=== PATIENT | male | born 1955 | race Hispanic/Latino ===

== ENCOUNTER → 2018-05-24 | Outpatient (CLI) | payer MEDICARE ==
[~2018-05-24] MED LIST: REGADENOSON 0.4 MG/5 ML PF SYG IVP SCH
== END | disposition home or self-care (01) ==
LOC: SHCH 07:55
PROVIDERS: ATTEND Internal Medicine Cardiovascular Disease
DX: I25.810 Atherosclerosis of coronary artery bypass graft(s) without angina pectoris (principal)
CPT/HCPCS: 78452; 93017; 96374; A9500 ×2; J2785

== ENCOUNTER → 2020-06-19 | Outpatient (CLI) | payer OTHER, MEDICARE | END | disposition home or self-care (01) | LOC: SHCH 08:40 | PROVIDERS: ATTEND Internal Medicine Cardiovascular Disease | DX: R01.1 Cardiac murmur, unspecified (principal) | CPT/HCPCS: 93306; 93356 ==

== ENCOUNTER → 2020-07-01 | Outpatient (CLI) | payer OTHER, MEDICARE | END | disposition home or self-care (01) | LOC: SHCH 07:46 | PROVIDERS: ATTEND Internal Medicine Cardiovascular Disease | DX: I65.23 Occlusion and stenosis of bilateral carotid arteries (principal) | CPT/HCPCS: 93880 ==

== ENCOUNTER 2020-09-16 10:02 | Observation (INO) | payer OTHER, MEDICARE ==
[~2020-09-16] VITALS: Ht 172.7 cm; Wt 80.7 kg
[2020-09-16] VITALS (7 sets, daily range): BP systolic 111–158; BP diastolic 54–85
[2020-09-16 11:14] LABS: BASOPHILS % (AUTO) 0.3 % (0.0-5.0); EOSINOPHILS % (AUTO) 0.3 % (0.0-8.0); HEMATOCRIT 44.9 % (42-54); LYMPHOCYTES % (AUTO) 17.4 % (21.0-51.0); MEAN CORPUSCULAR HEMOGLOBIN 30.1 pg (27.0-33.0); MEAN CORPUSCULAR VOLUME 91.4 fL (79-99); MONOCYTES % (AUTO) 6.4 % (3.0-13.0); NEUTROPHILS % (AUTO) 75.2 % (40.0-77.0); PLATELET COUNT (AUTO) 240 K/uL (130-400); RED BLOOD CELL COUNT(AUTO) 4.91 MIL/uL (4.50-6.20); WHITE BLOOD COUNT (AUTO) 9.9 K/uL (4.8-10.8)
[2020-09-16 11:19] LABS: CREATININE 1.1 mg/dL (0.5-1.5); POTASSIUM 4.6 mmol/L (3.5-5.1)
[2020-09-16 11:24] LABS: ALBUMIN 3.5 g/dL (3.5-5.0); BILIRUBIN,TOTAL 0.4 mg/dL (0.2-1.0); TOTAL PROTEIN, SERUM 7.3 g/dL (6.0-8.3)
[2020-09-16 11:59] LABS: B-TYPE NATRIURETIC PEPTIDE 131 pg/mL (0-100)
[2020-09-16 12:10] LABS: INR 0.89 (0.85-1.15); PROTHROMBIN TIME 9.8 SEC (9.6-11.6)
[2020-09-16 12:11] LABS: PARTIAL THROMBOPLASTIN TIME 26.9 SEC (26.3-35.5)
[2020-09-16] MEDS ORDERED: NITROGLYCERIN 1GM OINT 1 INCH/1GM TD ONE (12:30)
[2020-09-16] MEDS ORDERED: MAGNESIUM 2GM PREMIX 50ML 50 ML IV PRN (14:00)
[2020-09-16] MEDS ORDERED: POTASSIUM CHLORIDE 10% ELIXIR 20 MEQ/15 ML UDCUP PO PRN (14:00)
[2020-09-16] MEDS ORDERED: POTASSIUM CHLORIDE 20MEQ/100ML 100 ML IV PRN ×2 (14:00)
[2020-09-16] MEDS: NITROGLYCERIN 1GM OINT 1 INCH/1GM TD SCH ×2 (14:00→22:00)
[2020-09-16] MEDS ORDERED: LIDOCAINE HCL-MPF 1% 2ML VIAL IV PRN ×2 (14:00)
[2020-09-16] MEDS ORDERED: KCL 20 MEQ ERTAB PO PRN (14:00)
[2020-09-16] MEDS ORDERED: ONDANSETRON 4MG INJ IVP PRN (14:00)
[2020-09-16 14:27] LABS: CHOLESTEROL 180 mg/dL (<200); CREATINE KINASE, TOTAL 178 U/L (21-232); HDL CHOLESTEROL 62 mg/dL (29-71); LDL DIRECT 97 mg/dL (0-99); MYOGLOBIN 69 ng/mL (10-92); THYROID STIMULATING HORMONE 0.27 uIU/mL (0.36-3.74); TRIGLYCERIDES 107 mg/dL (30-200); TROPONIN I < 0.04 ng/mL (0.00-0.06)
[2020-09-16] MEDS ORDERED: ATOR40TA69 PO (17:52)
[2020-09-16] MEDS ORDERED: ATEN25TA PO (17:52)
[2020-09-16] MEDS ORDERED: CLOP75TA32 PO (17:52)
[2020-09-16] MEDS ORDERED: TAMS-1 PO (17:52)
[2020-09-16] MEDS ORDERED: ZOLP10TA2 PO (17:52)
[2020-09-16] MEDS: ACETAMINOPHEN 325 MG TAB PO PRN (19:49)
[2020-09-16 21:52] LABS: APPEARANCE,URINE Clear (CLEAR); BILIRUBIN,URINE Negative (NEGATIVE); COLOR,URINE Yellow (YELLOW); GLUCOSE, URINE (UA) Negative (NEGATIVE); KETONES,URINE Trace mg/dL (NEGATIVE); LEUKOCYTE ESTERASE ,URINE Trace (NEGATIVE); NITRATE,URINE Negative (NEGATIVE); OCCULT BLOOD,URINE Negative (NEGATIVE); PROTEIN,URINE Negative (NEGATIVE)
[2020-09-16 21:59] LABS: BACTERIA,URINE Rare /HPF (None Seen); RBC,URINE 0-1 /HPF (0-1); SQUAMOUS EPITHELIAL CELL,UR Rare /HPF (0-2)
[2020-09-16 22:26] LABS: TROPONIN I 1.9 ng/mL (0.00-0.06)
[2020-09-16] MEDS: ZOLPIDEM TARTRATE 5 MG TAB PO SCH (22:27)
[2020-09-16] MEDS: METOPROLOL TARTRATE 25 MG TAB PO SCH (22:27)
[2020-09-16] MEDS: ATORVASTATIN 40 MG TABLET PO SCH (22:27)
[2020-09-16] MEDS: PANTOPRAZOLE 40 MG/VIAL IVP SCH (22:27)
[2020-09-17] VITALS (11 sets, daily range): BP systolic 119–135; BP diastolic 64–91
[2020-09-17] MEDS: NITROGLYCERIN 1GM OINT 1 INCH/1GM TD SCH ×2 (04:36→09:17)
[2020-09-17 05:35] LABS: BASOPHILS % (AUTO) 0.4 % (0.0-5.0); EOSINOPHILS % (AUTO) 1.6 % (0.0-8.0); HEMATOCRIT 42.6 % (42-54); LYMPHOCYTES % (AUTO) 30.7 % (21.0-51.0); MEAN CORPUSCULAR HEMOGLOBIN 30.1 pg (27.0-33.0); MEAN CORPUSCULAR HGB CONC 33.1 g/dL (32.0-36.0); MEAN CORPUSCULAR VOLUME 90.8 fL (79-99); MONOCYTES % (AUTO) 9.5 % (3.0-13.0); NEUTROPHILS % (AUTO) 57.5 % (40.0-77.0); PLATELET COUNT (AUTO) 278 K/uL (130-400); RED BLOOD CELL COUNT(AUTO) 4.69 MIL/uL (4.50-6.20); WHITE BLOOD COUNT (AUTO) 13.7 K/uL (4.8-10.8)
[2020-09-17 05:36] LABS: CREATININE 1.3 mg/dL (0.5-1.5); POTASSIUM 3.9 mmol/L (3.5-5.1)
[2020-09-17] MEDS: METOPROLOL TARTRATE 25 MG TAB PO SCH ×2 (09:00→20:16)
[2020-09-17] MEDS: TAMSULOSIN HCL 0.4 MG CAP.ER.24H PO SCH (09:00)
[2020-09-17] MEDS ORDERED: CLOPIDOGREL 75MG TAB PO SCH (09:00)
[2020-09-17] MEDS ORDERED: ENOXAPARIN SODIUM 40 MG/0.4 ML SYRINGE SQ SCH (09:00)
[2020-09-17] MEDS: ASPIRIN 81 MG EC TAB PO SCH (09:00)
[2020-09-17] MEDS: PANTOPRAZOLE 40 MG/VIAL IVP SCH (09:01)
[2020-09-17] MEDS ORDERED: BIVALIRUDIN 250 MG/VIAL IV ONE (10:07)
[2020-09-17] MEDS ORDERED: LIDOCAINE HCL 400MG/20ML VIAL ONE (10:08)
[2020-09-17] MEDS ORDERED: NITROGLYCERIN 2 MG VIAL IV ONE (10:08)
[2020-09-17] MEDS ORDERED: IOHEXOL-350 50ML VIAL IV ONE ×2 (10:08→12:53)
[2020-09-17] MEDS ORDERED: IOHEXOL 350 MG/ML 100ML INFUS..BTL IV ONE (10:08)
[2020-09-17] MEDS ORDERED: MIDAZOLAM HCL 1 MG/ML 2ML VIAL ONE (10:10)
[2020-09-17] MEDS ORDERED: FENTANYL CITRATE PF 50 MCG/1 ML 2ML VIAL ONE ×2 (11:37→12:31)
[2020-09-17] MEDS ORDERED: ASPIRIN 325MG EC TAB PO ONE (12:24)
[2020-09-17] MEDS ORDERED: PRASUGREL HCL 10 MG TABLET ONE (12:24)
[2020-09-17] MEDS ORDERED: 0.9%NACL 1000ML 1,000 ML IV SCH (13:30)
[2020-09-17] MEDS ORDERED: MORPHINE 10 MG SYG IVP PRN (19:00)
[2020-09-17] MEDS ORDERED: MORPHINE 2 MG SYG IVP PRN (19:00)
[2020-09-17] MEDS ORDERED: SIMETHICONE 80 MG TAB.CHEW PO PRN (19:00)
[2020-09-17] MEDS ORDERED: RANOLAZINE 500 MG TAB.SR.12H ONE (19:11)
[2020-09-17] MEDS: RANOLAZINE 500 MG TAB.SR.12H PO SCH (21:00)
[2020-09-17] MEDS: ATORVASTATIN 40 MG TABLET PO SCH (21:00)
[2020-09-17] MEDS: ZOLPIDEM TARTRATE 5 MG TAB PO SCH (23:25)
[2020-09-17] MEDS: ACETAMINOPHEN 325 MG TAB PO PRN (23:26)
[2020-09-18 03:42] LABS: HEMATOCRIT 46.3 % (42-54); MEAN CORPUSCULAR HEMOGLOBIN 30.4 pg (27.0-33.0); MEAN CORPUSCULAR HGB CONC 33.3 g/dL (32.0-36.0); MEAN CORPUSCULAR VOLUME 91.3 fL (79-99); RED BLOOD CELL COUNT(AUTO) 5.07 MIL/uL (4.50-6.20); RED CELL DISTRIBUTION WIDTH 15.7 % (11.0-15.5); WHITE BLOOD COUNT (AUTO) 11.4 K/uL (4.8-10.8)
[2020-09-18 03:49] LABS: CREATININE 1.1 mg/dL (0.5-1.5); POTASSIUM 4.6 mmol/L (3.5-5.1)
[2020-09-18 04:14] VITALS: BP 114/77
[2020-09-18 07:58] VITALS: BP 118/75
[2020-09-18] MEDS ORDERED: PRASUGREL HCL 10 MG TABLET PO SCH (09:00)
[2020-09-18] MEDS ORDERED: PANTOPRAZOLE 40 MG TAB DR PO SCH (09:00)
[2020-09-18] MEDS: RANOLAZINE 500 MG TAB.SR.12H PO SCH (09:00)
[2020-09-18] MEDS: ACETAMINOPHEN 325 MG TAB PO PRN (09:49)
[2020-09-18] MEDS: METOPROLOL TARTRATE 25 MG TAB PO SCH (09:50)
[2020-09-18] MEDS: TAMSULOSIN HCL 0.4 MG CAP.ER.24H PO SCH (09:50)
[2020-09-18] MEDS: ASPIRIN 81 MG EC TAB PO SCH (09:50)
[2020-09-18 11:26] VITALS: BP 115/74
== END 2020-09-18 14:35 | disposition home or self-care (01) ==
LOC: EDH 10:02 → EDHIP 13:34 → 4BH 21:45
PROVIDERS: ADMIT Internal Medicine Critical Care Medicine; ATTEND Internal Medicine Critical Care Medicine
DX: I25.10 Atherosclerotic heart disease of native coronary artery without angina pectoris (principal); I24.9 Acute ischemic heart disease, unspecified; I10 Essential (primary) hypertension; E11.9 Type 2 diabetes mellitus without complications; I44.7 Left bundle-branch block, unspecified; J61 Pneumoconiosis due to asbestos and other mineral fibers; E78.5 Hyperlipidemia, unspecified; E78.00 Pure hypercholesterolemia, unspecified; M54.17 Radiculopathy, lumbosacral region; E78.1 Pure hyperglyceridemia; I21.4 Non-ST elevation (NSTEMI) myocardial infarction; I25.110 Atherosclerotic heart disease of native coronary artery with unstable angina pectoris; E11.51 Type 2 diabetes mellitus with diabetic peripheral angiopathy without gangrene; C61 Malignant neoplasm of prostate; K21.9 Gastro-esophageal reflux disease without esophagitis; Z95.1 Presence of aortocoronary bypass graft; Z85.46 Personal history of malignant neoplasm of prostate; Z79.899 Other long term (current) drug therapy; Z68.27 Body mass index [BMI] 27.0-27.9, adult; Z79.02 Long term (current) use of antithrombotics/antiplatelets; Z92.3 Personal history of irradiation; Z95.5 Presence of coronary angioplasty implant and graft
CPT/HCPCS: 36415 ×3; 71045; 80048 ×2; 80053; 80061; 81001; 82550 ×2; 83735; 83874 ×2; 83880; 84443; 84484 ×4; 85025 ×2; 85027; 85378; 85610; 85730; 93005 ×2; 93459; 96374; 96375; 96376; 99285; C1725; C1760; C1769; C1874; C1887; C1894 ×2; C9113 ×2; C9604; G0378 ×49; J0583; J1644 ×2; J2250; J2405; J3010 ×2; J3490 ×2; Q9965 ×2; Q9967 ×2; 99156; 99157

== ENCOUNTER → 2022-04-08 | Outpatient (CLI) | payer OTHER, MEDICARE ==
[~2022-04-08] MED LIST changes: +ATEN25TA PO; +ATOR40TA69 PO; +CLOP75TA32 PO; -REGADENOSON 0.4 MG/5 ML PF SYG IVP SCH; +TAMS-1 PO; +ZOLP10TA2 PO
== END | disposition home or self-care (01) ==
LOC: SHCH 08:19
PROVIDERS: ATTEND Internal Medicine Cardiovascular Disease
DX: I73.9 Peripheral vascular disease, unspecified (principal)
CPT/HCPCS: 93925

== ENCOUNTER 2022-06-16 19:20 | Emergency (ER) | payer OTHER, MEDICARE ==
[~2022-06-16] VITALS: Ht 172.7 cm; Wt 82.6 kg
[2022-06-16 20:00] LABS: BASOPHILS % (AUTO) 0.4 % (0.0-5.0); LYMPHOCYTES % (AUTO) 9.3 % (21.0-51.0); MEAN CORPUSCULAR HEMOGLOBIN 30.5 pg (27.0-33.0); MEAN CORPUSCULAR HGB CONC 32.9 g/dL (32.0-36.0); MEAN CORPUSCULAR VOLUME 92.7 fL (79-99); MONOCYTES % (AUTO) 8.6 % (3.0-13.0); NEUTROPHILS % (AUTO) 80.2 % (40.0-77.0); PLATELET COUNT (AUTO) 312 K/uL (130-400); RED CELL DISTRIBUTION WIDTH 15.9 % (11.0-15.5); WHITE BLOOD COUNT (AUTO) 15.5 K/uL (4.8-10.8)
[2022-06-16] MEDS ORDERED: ACETAMINOPHEN 325 MG TAB PO ONE (20:00)
[2022-06-16 20:01] LABS: APPEARANCE,URINE CLEAR (CLEAR); BILIRUBIN,URINE NEGATIVE (NEGATIVE); COLOR,URINE LIGHT-YELLOW (YELLOW); GLUCOSE, URINE (UA) NEGATIVE (NEGATIVE); KETONES,URINE 5 mg/dL (NEGATIVE); LEUKOCYTE ESTERASE ,URINE NEGATIVE Leu/uL (NEGATIVE); NITRATE,URINE NEGATIVE (NEGATIVE); OCCULT BLOOD,URINE NEGATIVE (NEGATIVE); PROTEIN,URINE 30 mg/dL (NEGATIVE); UROBILINOGEN,URINE 0.2 mg/dL (0.2-1.0)
[2022-06-16 20:08] LABS: CARBON DIOXIDE 25 mmol/L (21-32); CHLORIDE 105 mmol/L (101-111); CREATININE 1.3 mg/dL (0.5-1.5); GLOMERULAR FILTR. RATE CALC 61 mL/min (>90); GLUCOSE,RANDOM 122 mg/dL (70-105); POTASSIUM 4.2 mmol/L (3.5-5.1); SODIUM SERUM 140 mmol/L (136-145); UREA NITROGEN, BLOOD 34 mg/dL (7-18)
[2022-06-16 20:17] LABS: ALANINE AMINOTRANSFERASE 48 U/L (12-78); ALBUMIN 4.1 g/dL (3.5-5.0); ASPARTATE AMINOTRANSFERASE 38 U/L (10-37); TOTAL PROTEIN, SERUM 8.5 g/dL (6.0-8.3)
[2022-06-16 20:19] LABS: LIPASE < 50 U/L (114-286)
[2022-06-16 20:25] LABS: MUCUS,URINE RARE LPF (None Seen); SQUAMOUS EPITHELIAL CELL,UR RARE /HPF (0-2); WBC,URINE 0-1 /HPF (0-1)
[2022-06-16] MEDS ORDERED: KETOROLAC 15MG/ML VIAL (15MG/ML) IV ONE (21:30)
[2022-06-16] MEDS ORDERED: 0.9%NACL 1000ML 1,000 ML IV ONE (21:30)
[2022-06-16] MEDS ORDERED: LEVOFLOXACIN 750 MG/D5W 150ML BAG IVPB ONE (21:30)
[2022-06-16] MEDS ORDERED: ONDANSETRON 4MG INJ IVP ONE (21:30)
[2022-06-16] MEDS ORDERED: ONDA4TAB10 PO (23:04)
[2022-06-16] MEDS ORDERED: LEVO750T68 PO (23:04)
[2022-06-16 23:40] VITALS: BP 111/60
== END 2022-06-17 00:29 | disposition home or self-care (01) ==
LOC: EDH 19:20
DX: A09 Infectious gastroenteritis and colitis, unspecified (principal); D72.829 Elevated white blood cell count, unspecified; I10 Essential (primary) hypertension; Z79.01 Long term (current) use of anticoagulants; Z79.899 Other long term (current) drug therapy; Z85.46 Personal history of malignant neoplasm of prostate; Z20.822 Contact with and (suspected) exposure to COVID-19
CPT/HCPCS: 99285; 96365; 71045; 96375; 87635; 96366; 84484; 80053; 83690; 85025; 87040 ×2; 87804 ×2; 81001; 36415; 93005; C9803; J1956; J7030; J2405; J1885

== ENCOUNTER → 2023-06-06 | Outpatient (CLI) | payer OTHER, MEDICARE ==
[~2023-06-06] MED LIST changes: +ALBU10PO MC; +DOXY100T2 PO; +FURO20TA4 PO; +FURO20TA6 PO; +LINA290C PO; +OMEP40CA21 PO
[2023-06-06] MEDS: REGADENOSON 0.4 MG/5 ML PF SYG IVP ONE (14:45)
== END | disposition home or self-care (01) ==
LOC: SHCH 08:37
PROVIDERS: ATTEND Internal Medicine Cardiovascular Disease
DX: I25.10 Atherosclerotic heart disease of native coronary artery without angina pectoris (principal); I51.7 Cardiomegaly
CPT/HCPCS: 78452; 96374; 93017; J2785; A9500 ×2

== ENCOUNTER → 2023-06-15 | Outpatient (CLI) | payer OTHER, MEDICARE ==
[2023-06-15 12:13] LABS: BASOPHILS # (AUTO) 0.05 K/uL (0.00-0.20); BASOPHILS % (AUTO) 0.6 % (0.0-5.0); EOSINOPHILS # (AUTO) 0.44 K/uL (0.00-0.70); EOSINOPHILS % (AUTO) 5.1 % (0.0-8.0); HEMATOCRIT 44.2 % (42-54); IMMATURE GRANULOCYTE ABSOLUTE 0.03 K/uL (0-1); LYMPHOCYTES # (AUTO) 3.4 K/uL (1.0-4.8); LYMPHOCYTES % (AUTO) 39.1 % (21.0-51.0); MEAN CORPUSCULAR HEMOGLOBIN 30.3 pg (27.0-33.0); MEAN CORPUSCULAR HGB CONC 33.3 g/dL (32.0-36.0); MEAN CORPUSCULAR VOLUME 91.1 fL (79-99); MONOCYTES # (AUTO) 0.9 K/uL (0.1-1.0); MONOCYTES % (AUTO) 10.4 % (3.0-13.0); NEUTROPHILS # (AUTO) 3.9 K/uL (1.8-7.7); NEUTROPHILS % (AUTO) 44.5 % (40.0-77.0); PLATELET COUNT (AUTO) 298 K/uL (130-400); RED BLOOD CELL COUNT(AUTO) 4.85 MIL/uL (4.50-6.20); RED CELL DISTRIBUTION WIDTH 14.8 % (11.0-15.5); WHITE BLOOD COUNT (AUTO) 8.7 K/uL (4.8-10.8)
[2023-06-15 12:42] LABS: ALBUMIN 3.3 g/dL (3.5-5.0); BILIRUBIN,TOTAL 0.5 mg/dL (0.2-1.0); CREATININE 1.1 mg/dL (0.5-1.3); MAGNESIUM 1.9 mg/dL (1.80-2.40); POTASSIUM 4.1 mmol/L (3.5-5.1); TOTAL PROTEIN, SERUM 7.2 g/dL (6.0-8.3)
[2023-06-15 13:03] LABS: ERYTHROCYTE SEDIMENTATION RATE 10 MM/HR (0-20)
== END | disposition home or self-care (01) ==
LOC: LAB 08:04
PROVIDERS: ATTEND Internal Medicine Cardiovascular Disease
DX: I10 Essential (primary) hypertension (principal); E78.5 Hyperlipidemia, unspecified
CPT/HCPCS: 36415; 80053; 80061; 83735; 83880; 85025; 85651

== ENCOUNTER → 2024-05-02 | Outpatient (CLI) | payer OTHER, MEDICARE ==
--- NOTE | 2024-05-06 15:15 | HMCSR ---
APPROVED REPORT EXAM: Two-dimensional and M-mode echocardiogram with Doppler and color Doppler. INDICATION ICD: I10.0 Essential (primary) Hypertension 2D Dimensions RVDd4.0 cmLVEF(%)43.2 (>50%)LVED Vol(simp.)103.0 mL IVSd1.2 (0.7-1.1cm)FS(%)21 %LVES Vol(simp.)55.0 mL LVDd5.1 (3.8-5.6cm)Ao Root(2D)3.2 (2.0-3.7cm)LVEF(%, simp.)47 % PWd1.3 (0.7-1.1cm)LVOT diam2.2 (1.8-2.4cm)LA ESV INDEX (BP)29.18 mL/m2 LVDs4.0 (2.5-4.0cm)IVC diam1.6 cm Aortic Valve AoV Vmax1.2 m/Carmen Peak GR5.7 mmHgLVOT Vmax1.0 m/s AoV VTI0.3 mAo Mean GR3.2 mmHgLVOT VTI0.22 m DARRIN (VMAX)3.0 cm2AVA (VTI) 3.0 cm2 Mitral Valve MV E Vmax78.8 cm/sDECEL Oung475 ms MV A Vmax62.4 cm/sP 1/2 T79 ms E/A ratio1.3MVA (PHT)2.8 cm2 TDI E/E' Bwvmoa61.9E/E' Lateral8.1 Pulmonary Valve PV Vmax1.4 m/sPV VTI0.25 mPV Mean GR3 mmHg PV Peak GR7.4 mmHg Tricuspid Valve TR Vmax2.3 m/sRAP (EST) 3 iwUhWFWI66.8 mmHg TR Peak GR20.8 mmHg Left Ventricle Left ventricular cavity size is normal. There is mild concentric left ventricular hypertrophy. LVEF i s 40-45%. No left ventricle thrombus noted on this study. Left ventricular filling pattern is normal for age. Right Ventricle The right ventricle is normal size. The right ventricular systolic function is normal. Atria The left atrium size is normal. The right atrium size is normal. Aortic Valve Aortic valve leaflets are sclerotic but open well. Trace aortic regurgitation. There is no aortic madeline vular stenosis. Mitral Valve Mitral valve leaflets are mildly sclerotic but open well. Mitral regurgitation is trace. There is no mitral valve stenosis. Tricuspid Valve The tricuspid valve leaflets appear normal. There is trace tricuspid regurgitation. Pulmonic Valve The pulmonic valve leaflets are thin and pliable; valve motion is normal. There is trace pulmonic madeline vular regurgitation. Great Vessels The aortic root is normal in size. The IVC is normal in size and collapses >50% with inspiration. Pericardium No pericardial effusion. Conclusion Left ventricular cavity size is normal. There is mild concentric left ventricular hypertrophy. LVEF is 40-45%. The right ventricle is normal size. The left atrium size is normal. Aortic valve leaflets are sclerotic but open well. Trace aortic regurgitation. Mitral valve leaflets are mildly sclerotic but open well. Mitral regurgitation is trace. There is trace tricuspid regurgitation. There is trace pulmonic valvular regurgitation. The aortic root is normal in size. The IVC is normal in size and collapses >50% with inspiration. No pericardial effusion.
== END | disposition home or self-care (01) ==
LOC: SHCH 10:44
PROVIDERS: ATTEND Internal Medicine Cardiovascular Disease
DX: I08.0 Rheumatic disorders of both mitral and aortic valves (principal); I11.9 Hypertensive heart disease without heart failure
CPT/HCPCS: 93306

== ENCOUNTER → 2024-10-10 | Outpatient (CLI) | payer OTHER, MEDICARE ==
[~2024-10-10] MED LIST changes: +IOHEXOL 350 MG/ML 100ML INFUS..BTL IV ONE; -TAMS-1 PO; +TAMS-55 PO; +ZOLP-685 PO; -ZOLP10TA2 PO
--- NOTE | 2024-10-14 19:36 | CARDIOLOGY ---
RAD REPORT: [facility] CT ANGIO RADIOLOGY REPORT: CORONARY CT ANGIOGRAPHY DATE: October 10, 2024 QUALITY: Excellent CLINICAL HISTORY AND INDICATION: [ CABG ] TECHNIQUE: After obtaining a preliminary lube technician image, contrast imaging performed on an [employer] [id number] scanner. A dedicated, limited window, coronary imaging protocol was used, with single breath-hold, retrospective ECG gating, and automated arrhythmia rejection. 100 cc of low osmolar contrast agent: Omnipaque 350 was delivered via a 18-gauge IV catheter in the right antecubital fossa, using a power injector and followed by 60 cc of normal saline bolus as a chaser. Collimated images were reformatted at 0.5 mm intervals, and sent to an offline independent workstation for interpretation, using 3D anatomic reconstructions: Curved multiplanar reconstructions, maximum intensity projections, and multiplanar imaging. 10 mg IV metoprolol was administered prior to scanning. 0.8 mg SL nitroglycerin was given. CORONARY ARTERY DESCRIPTIONS: The coronary arteries arise in normal position. Left main coronary artery: Normal caliber vessel that bifurcates into the LAD and LCx. There is mixed calcified and noncalcified plaque in the distal left main with 50% stenosis. Left anterior descending coronary artery: Normal caliber vessel and gives rise to diagonal and septal branches. There is mixed calcified and noncalcified plaque in the ostial/proximal LAD with 80-90% stenosis. Left circumflex coronary artery: Normal caliber, nondominant and gives rise to a large OM branch. The LCx is heavily calcified and is occluded proximally. Right coronary artery: Large, dominant vessel giving rise to the PL and PDA branches. [employer] of ostial to distal RCA just proximal to SVG to PDA anastomosis site. Patent VIDALES to LAD. Patent SVG to OM. Patent SVG to R PDA. Drug eluting stent of the distal SVG to R PDA anastomosis site appears patent. Thoracic Aorta: Normal diameter. Geri Taylor MD Cardiovascular Disease [facility] GERI TAYLOR MD Oct 14, 2024 19:36
== END | disposition home or self-care (01) ==
LOC: RAH 09:49
PROVIDERS: ATTEND Internal Medicine Cardiovascular Disease
DX: I25.10 Atherosclerotic heart disease of native coronary artery without angina pectoris (principal); R07.9 Chest pain, unspecified; Z95.1 Presence of aortocoronary bypass graft
CPT/HCPCS: 75574; J3490; Q9967